=== PATIENT | female | born 1940 | race Two or more races ===

== ENCOUNTER 2024-07-14 21:33 | Emergency (ER) | payer OTHER ==
[~2024-07-14] VITALS: Ht 149.9 cm; Wt 56.7 kg
[2024-07-14] MEDS ORDERED: PENTOXIFYLLINE400 MG PO (21:51)
[2024-07-14] MEDS ORDERED: ANTIVERT25 M2 PO (21:51)
[2024-07-14] MEDS ORDERED: DIOVAN320 MG PO (21:51)
[2024-07-14] MEDS ORDERED: GLIMEPIRIDE2 MG (21:52)
[2024-07-14] MEDS ORDERED: ADULT ASPIRIN81 MG PO (21:52)
[2024-07-15] MEDS ORDERED: FAMOTIDINE/PF 20 MG in 0.9 % SODIUM CHLORIDE 8 ML IV PUSH STA (00:21)
[2024-07-15] MEDS ORDERED: FAMOTIDINE/PF 20 MG/2 ML VIAL ONE (00:27)
[2024-07-15] MEDS ORDERED: 0.9 % SODIUM CHLORIDE 1,000 ML IV SCH (00:30)
[2024-07-15 00:48] LABS: BASO % 0.6 % (0.1-1.2); EOS # 0.32 (0.04-0.54); EOS % 2.2 % (0.7-7.0); HEMATOCRIT 32.4 % (34.1-44.9); HEMOGLOBIN 11.2 g/dL (11.2-15.7); LYMPH # 1.44 (1.18-3.74); LYMPH % 10.1 % (19.3-53.1); MEAN CORPUSCULAR HEMOGLOBIN 28.6 pg (25.6-32.2); MONO # 1.06 (0.24-0.82); MONO % 7.4 % (4.7-12.5); NEUT # 11.29 (1.56-6.13); PLATELET COUNT 344 K/uL (163-369); RED BLOOD COUNT 3.92 M/uL (3.93-5.22); RED CELL DISTRIBUTION WIDTH 18.2 % (11.6-14.4)
[2024-07-15 01:31] LABS: ALBUMIN 2.8 gm/dL (3.4-5.0); CALCIUM 9.5 mg/dL (8.5-10.1); CREATININE SERUM 0.97 mg/dL (0.55-1.02); GFR 54.84; GLOBULINA 5.6 G/DL (2.4-3.5); POTASSIUM 3.76 mEq/L (3.5-5.1); TOTAL PROTEIN 8.4 gm/dL (6.4-8.2)
[2024-07-15 01:46] LABS: BILIRUBIN,UNCONJUGATED 2.6 mg/dL (0.0-0.6)
[2024-07-15 01:57] LABS: BILIRUBIN TOTAL 13.55 mg/dL (0.3-1.2); BILIRUBIN,CONJUGATED 10.95 mg/dL (0.0-0.2)
== END 2024-07-15 06:15 | disposition home or self-care (01) ==
LOC: ER 23:39
PROVIDERS: General Practice
DX: K86.89 Other specified diseases of pancreas (principal); R17 Unspecified jaundice; E11.9 Type 2 diabetes mellitus without complications; Z79.84 Long term (current) use of oral hypoglycemic drugs; I10 Essential (primary) hypertension; Z88.8 Allergy status to other drugs, medicaments and biological substances
CPT/HCPCS: 36415; 74177; 96365; 99283; J3490; Q9965